=== PATIENT | female | born 1985 | race African-American/Black ===

== ENCOUNTER 2020-04-29 22:00 | Emergency (ER) | payer SELFPAY ==
[~2020-04-29] VITALS: Ht 162.6 cm; Wt 118.0 kg
[2020-04-29] MEDS ORDERED: TETANUS, DIPHTHERIA, PERTUSSIS VAC/PF 0.5ML (>7YR OLD) IM ONE (22:30)
[2020-04-29] MEDS ORDERED: IBUPROFEN 600MG TABLET PO ONE (22:30)
[2020-04-29] MEDS ORDERED: BACITRACIN ZINC OINT UDPKT TOP ONE (22:30)
[2020-04-29 23:25] LABS: BASOPHILS % 0.3 % (0.0-2.0); EOSINOPHILS % 1.7 % (0.0-5.0); HEMATOCRIT. 38.6 % (36.0-48.0); HEMOGLOBIN. 12.5 g/dL (12.0-16.0); LYMPHOCYTES % 20.3 % (20.0-50.0); MEAN CORPUSCULAR HEMOGLOBIN 25.1 pg (28.0-32.0); MEAN CORPUSCULAR VOLUME 77.7 fL (81.0-99.0); MONOCYTES % 5.9 % (2.0-8.0); NEUTROPHILS % 71.8 % (40.0-76.0); PLATELET 315 x1000/uL (130-400); RED BLOOD CELL COUNT 4.97 mill/uL (4.2-5.4); RED CELL DISTRIBUTION WIDTH 16.8 % (11.6-14.6)
[2020-04-29 23:32] LABS: CHLORIDE 105 mEq/L (98-107)
[2020-04-29 23:38] LABS: ETHANOL BLOOD < 10 mg/dL
[2020-04-30] MEDS ORDERED: OLANZAPINE 5MG TABLET ODT PO SCH (01:30)
[2020-04-30 02:54] VITALS: BP 121/79
== END 2020-04-30 07:08 | disposition left against medical advice (07) ==
LOC: ER 22:00
DX: M79.674 Pain in right toe(s) (principal); Z59.0 Homelessness; F31.9 Bipolar disorder, unspecified; I10 Essential (primary) hypertension; F17.290 Nicotine dependence, other tobacco product, uncomplicated
CPT/HCPCS: 36415; 73660; 80053; 80307; 80320; 80329; 85025; 90715; 99284; G0480